=== PATIENT | male | born 1950 | race Asian ===

== ENCOUNTER → 2017-04-21 | Outpatient (CLI) | payer MEDICARE ==
[~2017-04-21] VITALS: Ht 154.9 cm; Wt 60.0 kg
[2017-04-21 09:53] VITALS: BP 135/48
== END | disposition home or self-care (01) ==
LOC: SRCNTR 09:45
PROVIDERS: ATTEND Neurological Surgery
DX: Z48.811 Encounter for surgical aftercare following surgery on the nervous system (principal)
CPT/HCPCS: G0463